=== PATIENT | male | born 1975 | race Caucasian/White ===

== ENCOUNTER 2021-08-04 03:26 | Emergency (ER) | payer OTHER ==
[2021-08-04] MEDS ORDERED: Sodium Chloride 0.9% 2.5 ML Syringe FLUSH PRN (04:39)
[2021-08-04] MEDS ORDERED: HYDROmorphone 1 MG/ML Syringe IVPUSH ONE (04:39)
[2021-08-04] MEDS ORDERED: Ondansetron 4 MG/2 ML SDV IVPUSH ONE (04:39)
[2021-08-04] MEDS ORDERED: Sodium Chloride 0.9% 1,000 ML IV ONE (04:39)
[2021-08-04] MEDS ORDERED: Sodium Chloride 0.9% 10 ML Syringe FLUSH PRN (04:39)
[2021-08-04 05:20] LABS: BLOOD UREA NITROGEN,BUN 25 mg/dL (7.0-18.0); CHLORIDE,CL 102 mmol/L (98-107); GLUCOSE RANDOM 91 mg/dL (74-106); SODIUM,NA 138 mmol/L (136-148)
[2021-08-04] MEDS ORDERED: Iopamidol 755 MG/ML 500 ML Multipack Bottle IVPUSH ONE (06:00)
[2021-08-04] MEDS ORDERED: Ketorolac 30 MG/ML SDV IVPUSH ONE (06:05)
== END 2021-08-04 07:45 | disposition home or self-care (01) ==
LOC: MW.ED 03:26
DX: S22.41XA Multiple fractures of ribs, right side, initial encounter for closed fracture (principal); N20.0 Calculus of kidney; I71.9 Aortic aneurysm of unspecified site, without rupture; I10 Essential (primary) hypertension; I25.2 Old myocardial infarction; Z79.899 Other long term (current) drug therapy; Z72.0 Tobacco use; W18.30XA Fall on same level, unspecified, initial encounter
CPT/HCPCS: 36415; 71260; 74177; 80053; 81001; 85025; 93005; 96374; 96375; 99284; A9270; J1170; J1885; J2405; J3490; J7030; Q9967; 93010; 99285

== ENCOUNTER 2021-12-18 03:44 | Emergency (ER) | payer OTHER ==
[2021-12-18] MEDS ORDERED: traMADol 50 MG Tab PO ONE (04:26)
== END 2021-12-18 04:58 | disposition home or self-care (01) ==
LOC: MW.ED 03:44
DX: M25.571 Pain in right ankle and joints of right foot (principal); I10 Essential (primary) hypertension; Z72.0 Tobacco use; Z79.899 Other long term (current) drug therapy
CPT/HCPCS: 99283; A9270; 99282